=== PATIENT | male | born 1930 | race Two or more races ===

== ENCOUNTER → 2017-03-08 | Outpatient (CLI) | payer MEDICARE, BC ==
[~2017-03-08] MED LIST: ALBUTEROL2.5 MG/31 INH; COMBIGAN EYE DRO5 ML OPHTH; CYCLOBENZAPRINE5 MG PO; CYMBALTA60 MG PO; DELTASONE20 MG PO; FEOSOL325 MG PO; FLOMAX0.4 MG PO; LIPITOR80 MG PO; LOPRESSOR25 MG PO; LUMIGAN 0.01%2.5 ML OPHTH; PERCOCET 5-3251 EACH PO; PRED FORTE 1%5 ML OPHTH; PRILOSEC20 MG PO; PRINIVIL OR ZES10 MG PO
== END | disposition disaster alternative care site (69) ==
LOC: GRAD 15:18
DX: R06.02 Shortness of breath (principal); J98.11 Atelectasis; J98.4 Other disorders of lung; K44.9 Diaphragmatic hernia without obstruction or gangrene; R79.1 Abnormal coagulation profile
CPT/HCPCS: Q9967